=== PATIENT | female | born 1990 | race Caucasian/White ===

== ENCOUNTER 2018-03-06 13:34 | Emergency (ER) | payer SELFPAY ==
[~2018-03-06] VITALS: Ht 157.5 cm; Wt 77.1 kg
[2018-03-06 13:44] VITALS: Ht 157.5 cm; Wt 77.1 kg
[2018-03-06 14:28] LABS: UA SPECIFIC GRAVITY 1.025 (1.005-1.035); microscopic required? YES; urine erythrocyte NEGATIVE (NEGATIVE)
[2018-03-06 14:37] LABS: AMPHETAMINE QUAL UR POSITIVE (NEG <=1000)
[2018-03-06 14:56] LABS: RED CELL DISTRIBUTION WIDTH 13.9 % (11.5-14.5)
[2018-03-06 15:03] LABS: PLATELET COUNT 445 x10^3mcL (130-400)
[2018-03-06 15:08] LABS: CALCIUM 9.2 mg/dL (8.5-10.1); CARBON DIOXIDE 16.1 mmol/L (21-32); CHLORIDE SERUM 105 mmol/L (98-107); CREATININE SERUM 0.9 mg/dL (0.6-1.0); GFR1 > 60 mL/min; GLUCOSE SERUM 78 mg/dL (74-106); POTASSIUM SERUM 3.8 mmol/L (3.5-5.1); SODIUM SERUM 139 mmol/L (136-145)
[2018-03-06 15:12] LABS: ALBUMIN 4.3 g/dL (3.4-5.0); ALKALINE PHOSPHATASE 101 U/L (46-116); ALT/SGPT 42 U/L (14-59); AST/SGOT 44 U/L (15-37); BILIRUBIN TOTAL 3.1 mg/dL (0.20-1.00); TOTAL PROTEIN, SERUM 7.3 g/dL (6.4-8.2)
[2018-03-06] MEDS ORDERED: VALACYCLOVIR HYD1 GM PO (18:10)
[2018-03-06] MEDS ORDERED: SEROQUEL50 M1 PO (18:11)
[2018-03-06] MEDS ORDERED: SULFAMETH/TRIME1 TA3 PO (18:12)
[2018-03-06 19:18] VITALS: BP 133/93
== END 2018-03-06 19:18 | disposition home or self-care (01) ==
LOC: ED 13:34
PROVIDERS: Specialist
DX: F10.129 Alcohol abuse with intoxication, unspecified (principal); F15.10 Other stimulant abuse, uncomplicated; R41.82 Altered mental status, unspecified; F20.9 Schizophrenia, unspecified
CPT/HCPCS: 83880; G0480; J1630; J2060; J7030; Q0092

== ENCOUNTER 2018-03-30 19:17 | Emergency (ER) | payer MEDICAID ==
[~2018-03-30] VITALS: Ht 162.6 cm; Wt 77.1 kg
[~2018-03-30 19:17] MED LIST: SEROQUEL50 M1 PO; SULFAMETH/TRIME1 TA3 PO; VALACYCLOVIR HYD1 GM PO
[2018-03-30 19:43] VITALS: Ht 162.6 cm; Wt 77.1 kg
[2018-03-30 20:07] VITALS: BP 118/58
== END 2018-03-30 20:07 | disposition other institution (70) ==
LOC: ED 19:17
DX: S50.311A Abrasion of right elbow, initial encounter (principal); F10.129 Alcohol abuse with intoxication, unspecified; F20.9 Schizophrenia, unspecified; X58.XXXA Exposure to other specified factors, initial encounter; Y93.89 Activity, other specified; Y92.89 Other specified places as the place of occurrence of the external cause; Y99.8 Other external cause status

== ENCOUNTER 2018-04-13 00:53 | Inpatient (IN) | payer MEDICAID ==
[~2018-04-13] VITALS: Ht 157.5 cm; Wt 68.1 kg
[2018-04-13 00:58] VITALS: Ht 157.5 cm; Wt 68.1 kg
[2018-04-13 01:43] LABS: BASOPHIL % 0.5 % (0-2); RED CELL DISTRIBUTION WIDTH 11.8 % (11.5-14.5)
[2018-04-13 01:45] LABS: PLATELET COUNT 461 x10^3mcL (130-400)
[2018-04-13 01:55] LABS: CALCIUM 8.5 mg/dL (8.5-10.1); CARBON DIOXIDE 23.8 mmol/L (21-32); CHLORIDE SERUM 105 mmol/L (98-107); CREATININE SERUM 0.8 mg/dL (0.6-1.0); GFR1 > 60 mL/min; GLUCOSE SERUM 98 mg/dL (74-106); POTASSIUM SERUM 3.6 mmol/L (3.5-5.1); SODIUM SERUM 140 mmol/L (136-145)
[2018-04-13 01:59] LABS: ALBUMIN 3.6 g/dL (3.4-5.0); ALKALINE PHOSPHATASE 94 U/L (46-116); ALT/SGPT 23 U/L (14-59); AST/SGOT 32 U/L (15-37); BILIRUBIN TOTAL 0.59 mg/dL (0.20-1.00); TOTAL PROTEIN, SERUM 6.6 g/dL (6.4-8.2)
[2018-04-13 02:15] LABS: microscopic required? NO
[2018-04-13 02:38] LABS: AMPHETAMINE QUAL UR POSITIVE (NEG <=1000)
[2018-04-13 02:40] LABS: UA SPECIFIC GRAVITY >=1.030 (1.005-1.035); urine erythrocyte NEGATIVE (NEGATIVE)
[2018-04-13 04:03] VITALS: BP 128/75
[2018-04-13 04:04] LABS: PHOSPHOROUS 4.6 mg/dL (2.5-4.9)
[2018-04-13 04:08] LABS: T3 TOTAL 1.34 ng/mL
[2018-04-13 04:14] LABS: CHOLESTEROL/HDL RATIO 2.5
[2018-04-13 04:34] LABS: FREE T4 1.08 ng/dL (0.76-1.46)
[2018-04-13 12:28] VITALS: BP 103/63
[2018-04-13 16:59] VITALS: BP 103/63
[2018-04-13] MEDS ORDERED: ZOLOFT50 MG PO (17:14)
[2018-04-13] MEDS ORDERED: SEROQUEL100 MG PO (17:32)
[2018-04-13 20:56] VITALS: BP 114/71
[2018-04-14 06:28] VITALS: BP 119/64
[2018-04-14 08:30] VITALS: BP 108/63
[2018-04-14 10:01] VITALS: BP 108/63
[2018-04-14 12:30] VITALS: BP 111/73
== END 2018-04-14 14:29 | disposition home or self-care (01) | DRG 812 ==
LOC: ED 00:53 → DU 03:02 → MU 04-14 11:13
PROVIDERS: Emergency Medicine; Family Medicine
DX: T43.592A Poisoning by other antipsychotics and neuroleptics, intentional self-harm, initial encounter (principal); G92 Toxic encephalopathy; F25.1 Schizoaffective disorder, depressive type; R45.851 Suicidal ideations; F32.9 Major depressive disorder, single episode, unspecified; Y92.89 Other specified places as the place of occurrence of the external cause; F17.210 Nicotine dependence, cigarettes, uncomplicated; F41.9 Anxiety disorder, unspecified; F15.10 Other stimulant abuse, uncomplicated; F19.10 Other psychoactive substance abuse, uncomplicated; F10.10 Alcohol abuse, uncomplicated; F11.10 Opioid abuse, uncomplicated; Z23 Encounter for immunization
CPT/HCPCS: 83880; 84439; G0480; J7030; Q0092

== ENCOUNTER 2018-09-01 10:43 | Emergency (ER) | payer OTHER ==
[~2018-09-01] VITALS: Ht 157.5 cm; Wt 68.0 kg
[~2018-09-01 10:43] MED LIST changes: +SEROQUEL100 MG PO; +ZOLOFT50 MG PO
[2018-09-01 10:55] VITALS: Ht 157.5 cm; Wt 68.0 kg
[2018-09-01 11:26] VITALS: BP 117/70
== END 2018-09-01 11:26 | disposition home or self-care (01) ==
LOC: ED 10:43
DX: L03.115 Cellulitis of right lower limb (principal); F15.10 Other stimulant abuse, uncomplicated; F41.9 Anxiety disorder, unspecified; F31.9 Bipolar disorder, unspecified

== ENCOUNTER 2018-09-04 21:08 | Inpatient (IN) | payer OTHER ==
[~2018-09-04] VITALS: Ht 157.5 cm; Wt 68.0 kg
[2018-09-04 23:01] LABS: BASOPHIL % 0.9 % (0-2); PLATELET COUNT 342 x10^3mcL (130-400); RED CELL DISTRIBUTION WIDTH 12.5 % (11.5-14.5)
[2018-09-04 23:08] LABS: CALCIUM 9.1 mg/dL (8.5-10.1); CARBON DIOXIDE 30.4 mmol/L (21-32); CHLORIDE SERUM 104 mmol/L (98-107); CREATININE SERUM 0.8 mg/dL (0.6-1.0); GFR1 > 60 mL/min; GLUCOSE SERUM 86 mg/dL (74-106); SODIUM SERUM 142 mmol/L (136-145)
[2018-09-04 23:37] LABS: ALKALINE PHOSPHATASE 134 U/L (46-116); ALT/SGPT 203 U/L (14-59); AST/SGOT 163 U/L (15-37); BILIRUBIN TOTAL 1.38 mg/dL (0.20-1.00); TOTAL PROTEIN, SERUM 6.9 g/dL (6.4-8.2)
[2018-09-05] MEDS ORDERED: RISPERIDONE1 MG (06:15)
[2018-09-05 07:06] LABS: T3 TOTAL 1.46 ng/mL
[2018-09-05 07:12] LABS: MAGNESIUM 2.3 mg/dL (1.8-2.4); PHOSPHOROUS 4.4 mg/dL (2.5-4.9)
[2018-09-05 07:25] LABS: FREE T4 1.16 ng/dL (0.76-1.46); FREE THYROXINE INDEX 2.8 ug/dL (1.4-4.5); T4(THYROXINE) 8.5 ug/dL (4.7-13.3)
[2018-09-05 10:19] VITALS: BP 115/66
[2018-09-05 11:25] LABS: microscopic required? NO
[2018-09-05 12:15] LABS: urine erythrocyte NEGATIVE (NEGATIVE)
[2018-09-05 12:19] LABS: AMPHETAMINE QUAL UR POSITIVE (See below)
[2018-09-05 17:30] VITALS: BP 105/64; BP 113/76
[2018-09-05 21:03] VITALS: BP 114/72
[2018-09-06 00:50] VITALS: BP 111/69
[2018-09-06 05:51] VITALS: BP 107/50
[2018-09-06 06:03] LABS: BASOPHIL % 1.1 % (0-2); PLATELET COUNT 348 x10^3mcL (130-400); RED CELL DISTRIBUTION WIDTH 12.3 % (11.5-14.5)
[2018-09-06 06:22] LABS: CALCIUM 8.3 mg/dL (8.5-10.1); CARBON DIOXIDE 26.4 mmol/L (21-32); CHLORIDE SERUM 107 mmol/L (98-107); CREATININE SERUM 0.8 mg/dL (0.6-1.0); GFR1 > 60 mL/min; GLUCOSE SERUM 108 mg/dL (74-106); POTASSIUM SERUM 3.8 mmol/L (3.5-5.1); SODIUM SERUM 142 mmol/L (136-145)
[2018-09-06 09:01] VITALS: BP 99/59
[2018-09-06 12:15] VITALS: BP 93/47
[2018-09-06 12:56] VITALS: BP 93/47
[2018-09-06 13:40] VITALS: Ht 157.5 cm; Wt 68.0 kg
== END 2018-09-06 16:16 | disposition home or self-care (01) | DRG 812 ==
LOC: ED 21:08 → DU 09-05 05:48
PROVIDERS: Emergency Medicine; General Practice; Internal Medicine
DX: T43.621A Poisoning by amphetamines, accidental (unintentional), initial encounter (principal); G92 Toxic encephalopathy; M62.82 Rhabdomyolysis; F20.9 Schizophrenia, unspecified; F41.0 Panic disorder [episodic paroxysmal anxiety]; R74.0 Nonspecific elevation of levels of transaminase and lactic acid dehydrogenase [LDH]; M94.0 Chondrocostal junction syndrome [Tietze]; Y92.89 Other specified places as the place of occurrence of the external cause; F15.10 Other stimulant abuse, uncomplicated; E80.6 Other disorders of bilirubin metabolism; F32.9 Major depressive disorder, single episode, unspecified; F41.9 Anxiety disorder, unspecified; N92.6 Irregular menstruation, unspecified
CPT/HCPCS: 83880; 84439; G0480; J1630; J3490; J7030; Q0092

== ENCOUNTER 2018-09-08 01:04 | Emergency (ER) | payer OTHER ==
[~2018-09-08] VITALS: Ht 157.5 cm; Wt 77.1 kg
[~2018-09-08 01:04] MED LIST changes: +RISPERIDONE1 MG
[2018-09-08 01:07] VITALS: Ht 157.5 cm; Wt 77.1 kg
[2018-09-08 02:16] LABS: BASOPHIL % 0.9 % (0-2); PLATELET COUNT 384 x10^3mcL (130-400); RED CELL DISTRIBUTION WIDTH 12.1 % (11.5-14.5)
[2018-09-08 02:22] LABS: CALCIUM 8.4 mg/dL (8.5-10.1); CARBON DIOXIDE 28.2 mmol/L (21-32); CHLORIDE SERUM 109 mmol/L (98-107); CREATININE SERUM 0.6 mg/dL (0.6-1.0); GFR1 > 60 mL/min; GLUCOSE SERUM 95 mg/dL (74-106); POTASSIUM SERUM 4.1 mmol/L (3.5-5.1); SODIUM SERUM 146 mmol/L (136-145)
[2018-09-08 02:26] LABS: ALBUMIN 3.4 g/dL (3.4-5.0); ALKALINE PHOSPHATASE 147 U/L (46-116); ALT/SGPT 110 U/L (14-59); AMYLASE 88 U/L (25-115); AST/SGOT 73 U/L (15-37); BILIRUBIN TOTAL 0.22 mg/dL (0.20-1.00); LIPASE 162 IU/L (73-393); TOTAL PROTEIN, SERUM 6.2 g/dL (6.4-8.2)
[2018-09-08 02:28] LABS: AMPHETAMINE QUAL UR NONE DETECTED (See below)
[2018-09-08 05:38] VITALS: BP 116/59
== END 2018-09-08 05:38 | disposition home or self-care (01) ==
LOC: ED 01:04
PROVIDERS: Emergency Medicine
DX: R07.89 Other chest pain (principal); R11.10 Vomiting, unspecified; R05 Cough; F20.9 Schizophrenia, unspecified; F41.9 Anxiety disorder, unspecified; F31.9 Bipolar disorder, unspecified
CPT/HCPCS: 36415; G0480; J2405; J3490; J7030; Q0092

== ENCOUNTER 2018-09-09 22:46 | Emergency (ER) | payer OTHER ==
[~2018-09-09] VITALS: Ht 157.5 cm; Wt 77.1 kg
[2018-09-09 22:58] VITALS: Ht 157.5 cm; Wt 77.1 kg
[2018-09-10 00:02] VITALS: BP 116/68
== END 2018-09-10 00:02 | disposition home or self-care (01) ==
LOC: ED 22:46
DX: F41.9 Anxiety disorder, unspecified (principal); F32.9 Major depressive disorder, single episode, unspecified

== ENCOUNTER 2018-09-10 01:04 | Emergency (ER) | payer OTHER ==
[~2018-09-10] VITALS: Ht 157.5 cm; Wt 77.1 kg
[2018-09-10 01:09] VITALS: Ht 157.5 cm; Wt 77.1 kg
[2018-09-10 01:59] VITALS: BP 111/71
[2018-09-10 02:12] LABS: AMPHETAMINE QUAL UR NONE DETECTED (See below)
== END 2018-09-10 01:59 | disposition home or self-care (01) ==
LOC: ED 01:04
PROVIDERS: Emergency Medicine
DX: F41.9 Anxiety disorder, unspecified (principal); F20.9 Schizophrenia, unspecified

== ENCOUNTER 2018-09-10 20:20 | Emergency (ER) | payer OTHER ==
[~2018-09-10] VITALS: Ht 162.6 cm; Wt 72.6 kg
[2018-09-10 20:23] VITALS: Ht 162.6 cm; Wt 72.6 kg
[2018-09-11 06:19] VITALS: BP 125/80
== END 2018-09-11 06:19 | disposition home or self-care (01) ==
LOC: ED 20:20
DX: F15.10 Other stimulant abuse, uncomplicated (principal); F20.9 Schizophrenia, unspecified; F32.9 Major depressive disorder, single episode, unspecified; F31.9 Bipolar disorder, unspecified

== ENCOUNTER 2018-09-14 00:29 | Emergency (ER) | payer OTHER | END 2018-09-14 01:51 | disposition left against medical advice (07) | LOC: ED 00:29 | DX: Z53.21 Procedure and treatment not carried out due to patient leaving prior to being seen by health care provider (principal) ==

== ENCOUNTER 2018-09-20 09:25 | Emergency (ER) | payer OTHER ==
[~2018-09-20] VITALS: Ht 157.5 cm; Wt 77.1 kg
[2018-09-20 09:26] VITALS: Ht 157.5 cm; Wt 77.1 kg
[2018-09-20 09:47] VITALS: BP 129/90
[2018-09-20 10:02] LABS: AMPHETAMINE QUAL UR POSITIVE (See below)
== END 2018-09-20 09:47 | disposition other institution (70) ==
LOC: ED 09:25
DX: F19.10 Other psychoactive substance abuse, uncomplicated (principal); F20.9 Schizophrenia, unspecified; F41.9 Anxiety disorder, unspecified; F31.9 Bipolar disorder, unspecified; F15.10 Other stimulant abuse, uncomplicated

== ENCOUNTER 2018-09-20 09:25 | Emergency (ER) | payer OTHER | END 2018-09-20 09:47 | disposition other institution (70) | LOC: ED 09:25 | DX: Z02.89 Encounter for other administrative examinations (principal) ==

== ENCOUNTER 2018-09-26 07:23 | Emergency (ER) | payer OTHER ==
[~2018-09-26] VITALS: Ht 157.5 cm; Wt 63.5 kg
[2018-09-26 07:30] VITALS: Ht 157.5 cm; Wt 63.5 kg
[2018-09-26 08:22] LABS: UA SPECIFIC GRAVITY 1.025 (1.005-1.035); microscopic required? YES; urine erythrocyte 3+ (NEGATIVE)
[2018-09-26 09:10] LABS: BASOPHIL % 0.4 % (0-2); RED CELL DISTRIBUTION WIDTH 11.9 % (11.5-14.5)
[2018-09-26 09:11] LABS: CALCIUM 9.1 mg/dL (8.5-10.1); CARBON DIOXIDE 27.1 mmol/L (21-32); CHLORIDE SERUM 103 mmol/L (98-107); CREATININE SERUM 0.7 mg/dL (0.6-1.0); GFR1 > 60 mL/min; GLUCOSE SERUM 87 mg/dL (74-106); PLATELET COUNT 424 x10^3mcL (130-400); POTASSIUM SERUM 3.8 mmol/L (3.5-5.1); SODIUM SERUM 139 mmol/L (136-145)
[2018-09-26 09:16] LABS: AMPHETAMINE QUAL UR POSITIVE (See below)
[2018-09-26 09:17] LABS: ALBUMIN 4.3 g/dL (3.4-5.0); ALKALINE PHOSPHATASE 104 U/L (46-116); ALT/SGPT 21 U/L (14-59); AST/SGOT 13 U/L (15-37); BILIRUBIN TOTAL 0.5 mg/dL (0.20-1.00); TOTAL PROTEIN, SERUM 7.9 g/dL (6.4-8.2)
[2018-09-26 10:41] VITALS: BP 134/88
== END 2018-09-26 10:40 | disposition left against medical advice (07) ==
LOC: ED 07:23
PROVIDERS: Emergency Medicine
DX: F15.959 Other stimulant use, unspecified with stimulant-induced psychotic disorder, unspecified (principal); F20.9 Schizophrenia, unspecified; F41.9 Anxiety disorder, unspecified; F31.9 Bipolar disorder, unspecified
CPT/HCPCS: 36415; G0480

== ENCOUNTER 2018-10-13 01:00 | Inpatient (IN) | payer OTHER ==
[~2018-10-13] VITALS: Ht 157.5 cm; Wt 63.5 kg
[2018-10-13 01:07] VITALS: Ht 157.5 cm; Wt 63.5 kg
[2018-10-13 02:22] LABS: UA SPECIFIC GRAVITY 1.025 (1.005-1.035); microscopic required? YES; urine erythrocyte NEGATIVE (NEGATIVE)
[2018-10-13 02:41] LABS: AMPHETAMINE QUAL UR POSITIVE (See below)
[2018-10-13 03:31] LABS: BASOPHIL % 0.8 % (0-2); RED CELL DISTRIBUTION WIDTH 12.3 % (11.5-14.5)
[2018-10-13 03:33] LABS: PLATELET COUNT 412 x10^3mcL (130-400)
[2018-10-13 03:52] LABS: CALCIUM 8.7 mg/dL (8.5-10.1); CARBON DIOXIDE 27.4 mmol/L (21-32); CHLORIDE SERUM 108 mmol/L (98-107); CREATININE SERUM 0.8 mg/dL (0.6-1.0); GFR1 > 60 mL/min; GLUCOSE SERUM 89 mg/dL (74-106); POTASSIUM SERUM 4.5 mmol/L (3.5-5.1); SODIUM SERUM 145 mmol/L (136-145)
[2018-10-13 03:56] LABS: ALBUMIN 4.1 g/dL (3.4-5.0); ALKALINE PHOSPHATASE 97 U/L (46-116); ALT/SGPT 12 U/L (14-59); AST/SGOT 9 U/L (15-37); BILIRUBIN TOTAL 0.41 mg/dL (0.20-1.00); FREE T4 0.88 ng/dL (0.76-1.46); LIPASE 72 IU/L (73-393); TOTAL PROTEIN, SERUM 7.9 g/dL (6.4-8.2)
[2018-10-13 08:09] LABS: MAGNESIUM 1.8 mg/dL (1.8-2.4); PHOSPHOROUS 3.6 mg/dL (2.5-4.9)
[2018-10-13 08:12] LABS: CHOLESTEROL/HDL RATIO 2.4
[2018-10-13 11:15] VITALS: BP 119/76
[2018-10-13 13:26] VITALS: BP 136/82
[2018-10-13 16:59] VITALS: BP 109/72
[2018-10-13 21:52] VITALS: BP 103/64
[2018-10-14 05:53] VITALS: BP 102/61
[2018-10-14 09:19] VITALS: BP 92/50
[2018-10-14 18:04] VITALS: BP 105/70
[2018-10-15 05:13] VITALS: BP 97/56
[2018-10-15 08:29] VITALS: BP 116/66
[2018-10-15 18:25] VITALS: BP 104/69
[2018-10-15 19:21] VITALS: BP 103/67
[2018-10-16] MEDS ORDERED: KEFLEX500 M1 PO (10:14)
[2018-10-16 10:19] VITALS: BP 103/67
== END 2018-10-16 10:34 | disposition home or self-care (01) | DRG 812 ==
LOC: ED 01:00 → MU 03:44
PROVIDERS: Emergency Medicine; Internal Medicine
DX: T43.621A Poisoning by amphetamines, accidental (unintentional), initial encounter (principal); N17.0 Acute kidney failure with tubular necrosis; F20.9 Schizophrenia, unspecified; F41.9 Anxiety disorder, unspecified; D47.3 Essential (hemorrhagic) thrombocythemia; F29 Unspecified psychosis not due to a substance or known physiological condition; F17.210 Nicotine dependence, cigarettes, uncomplicated; Y90.0 Blood alcohol level of less than 20 mg/100 ml; F41.0 Panic disorder [episodic paroxysmal anxiety]; F10.129 Alcohol abuse with intoxication, unspecified; F32.9 Major depressive disorder, single episode, unspecified; N39.0 Urinary tract infection, site not specified; Z81.8 Family history of other mental and behavioral disorders; Y92.89 Other specified places as the place of occurrence of the external cause
CPT/HCPCS: 83880; 84439; G0480; J0696; J2060; J7030; Q0092

== ENCOUNTER 2018-10-16 18:39 | Emergency (ER) | payer OTHER ==
[~2018-10-16] VITALS: Ht 165.1 cm; Wt 72.6 kg
[~2018-10-16 18:39] MED LIST changes: +KEFLEX500 M1 PO
[2018-10-16 18:45] VITALS: BP 137/91; Ht 165.1 cm; Wt 72.6 kg
== END 2018-10-16 20:15 | disposition left against medical advice (07) ==
LOC: ED 18:39
DX: F15.90 Other stimulant use, unspecified, uncomplicated (principal); R10.9 Unspecified abdominal pain; F20.9 Schizophrenia, unspecified; F41.9 Anxiety disorder, unspecified; F32.9 Major depressive disorder, single episode, unspecified
CPT/HCPCS: G0480

== ENCOUNTER 2018-10-17 02:07 | Emergency (ER) | payer OTHER ==
[~2018-10-17] VITALS: Ht 152.4 cm; Wt 54.4 kg
[2018-10-17 02:19] VITALS: BP 129/74; Ht 152.4 cm; Wt 54.4 kg
== END 2018-10-17 02:55 | disposition left against medical advice (07) ==
LOC: ED 02:07
DX: F15.10 Other stimulant abuse, uncomplicated (principal); F20.9 Schizophrenia, unspecified; F41.9 Anxiety disorder, unspecified; F32.9 Major depressive disorder, single episode, unspecified; F31.9 Bipolar disorder, unspecified
CPT/HCPCS: G0480; J2060

== ENCOUNTER 2018-10-18 04:22 | Emergency (ER) | payer OTHER ==
[~2018-10-18] VITALS: Ht 170.2 cm; Wt 77.1 kg
[2018-10-18 04:27] VITALS: Ht 170.2 cm; Wt 77.1 kg
[2018-10-18 05:07] LABS: AMPHETAMINE QUAL UR POSITIVE (See below)
[2018-10-18 05:07] LABS: CARBON DIOXIDE 26.8 mmol/L (21-32); CHLORIDE SERUM 102 mmol/L (98-107); CREATININE SERUM 0.6 mg/dL (0.6-1.0); GFR1 > 60 mL/min; GLUCOSE SERUM 84 mg/dL (74-106); SODIUM SERUM 137 mmol/L (136-145)
[2018-10-18 05:12] LABS: ALBUMIN 4.4 g/dL (3.4-5.0); ALKALINE PHOSPHATASE 93 U/L (46-116); ALT/SGPT 15 U/L (14-59); AST/SGOT 19 U/L (15-37); BILIRUBIN TOTAL 0.99 mg/dL (0.20-1.00); TOTAL PROTEIN, SERUM 7.4 g/dL (6.4-8.2)
[2018-10-18 05:14] LABS: BASOPHIL % 0.4 % (0-2); PLATELET COUNT 317 x10^3mcL (130-400); POTASSIUM SERUM 4.1 mmol/L (3.5-5.1); RED CELL DISTRIBUTION WIDTH 12.6 % (11.5-14.5)
[2018-10-18 06:47] VITALS: BP 128/84
== END 2018-10-18 06:47 | disposition home or self-care (01) ==
LOC: ED 04:22
PROVIDERS: Emergency Medicine
DX: F41.9 Anxiety disorder, unspecified (principal); F15.20 Other stimulant dependence, uncomplicated; F20.9 Schizophrenia, unspecified; F31.9 Bipolar disorder, unspecified
CPT/HCPCS: 36415; G0480

== ENCOUNTER 2018-12-07 04:34 | Emergency (ER) | payer OTHER ==
[~2018-12-07] VITALS: Ht 157.5 cm; Wt 71.2 kg
[2018-12-07 04:37] VITALS: BP 125/90; Ht 157.5 cm; Wt 71.2 kg
== END 2018-12-07 05:14 | disposition home or self-care (01) ==
LOC: ED 04:34
DX: F41.9 Anxiety disorder, unspecified (principal); F15.10 Other stimulant abuse, uncomplicated; E86.0 Dehydration; F17.210 Nicotine dependence, cigarettes, uncomplicated; F20.9 Schizophrenia, unspecified; F32.9 Major depressive disorder, single episode, unspecified
CPT/HCPCS: 82962

== ENCOUNTER 2018-12-08 12:39 | Emergency (ER) | payer OTHER ==
[~2018-12-08] VITALS: Ht 170.2 cm; Wt 50.3 kg
[2018-12-08 12:41] VITALS: BP 111/71; Ht 170.2 cm; Wt 50.3 kg
== END 2018-12-08 13:54 | disposition left against medical advice (07) ==
LOC: ED 12:39
DX: R07.89 Other chest pain (principal); F15.10 Other stimulant abuse, uncomplicated; F20.9 Schizophrenia, unspecified; F31.9 Bipolar disorder, unspecified
CPT/HCPCS: Q0092

== ENCOUNTER 2018-12-17 13:04 | Emergency (ER) | payer OTHER ==
[~2018-12-17] VITALS: Ht 157.5 cm; Wt 71.2 kg
[2018-12-17 13:05] VITALS: BP 111/60; Ht 157.5 cm; Wt 71.2 kg
== END 2018-12-17 13:28 | disposition left against medical advice (07) ==
LOC: ED 13:04
DX: Z53.21 Procedure and treatment not carried out due to patient leaving prior to being seen by health care provider (principal)

== ENCOUNTER 2018-12-18 23:34 | Emergency (ER) | payer OTHER ==
[~2018-12-18] VITALS: Ht 157.5 cm; Wt 63.5 kg
[2018-12-18 23:44] VITALS: Ht 157.5 cm; Wt 63.5 kg
[2018-12-19 01:31] VITALS: BP 130/86
== END 2018-12-19 01:31 | disposition other institution (70) ==
LOC: ED 23:34
DX: Z02.89 Encounter for other administrative examinations (principal)

== ENCOUNTER 2018-12-18 23:34 | Emergency (ER) | payer OTHER | END 2018-12-19 01:32 | disposition other institution (70) | LOC: ED 23:34 | DX: Z02.89 Encounter for other administrative examinations (principal) ==

== ENCOUNTER 2019-01-06 22:26 | Emergency (ER) | payer OTHER ==
[~2019-01-06] VITALS: Ht 157.5 cm; Wt 63.5 kg
[2019-01-06 23:07] VITALS: Ht 157.5 cm; Wt 63.5 kg
[2019-01-07 02:15] VITALS: BP 141/72
== END 2019-01-07 06:49 | disposition home or self-care (01) ==
LOC: ED 22:26
DX: R00.2 Palpitations (principal); T43.625A Adverse effect of amphetamines, initial encounter; Y92.89 Other specified places as the place of occurrence of the external cause

== ENCOUNTER 2019-01-09 15:34 | Emergency (ER) | payer OTHER ==
[~2019-01-09] VITALS: Ht 170.2 cm; Wt 74.8 kg
[2019-01-09 16:33] VITALS: BP 123/79; Ht 170.2 cm; Wt 74.8 kg
== END 2019-01-09 18:10 | disposition home or self-care (01) ==
LOC: ED 15:34
DX: R53.1 Weakness (principal); F31.9 Bipolar disorder, unspecified; F15.10 Other stimulant abuse, uncomplicated; Z59.0 Homelessness
CPT/HCPCS: 87804; G0480

== ENCOUNTER 2019-01-12 17:20 | Emergency (ER) | payer OTHER | END 2019-01-12 17:32 | disposition left against medical advice (07) | LOC: ED 17:20 | DX: Z53.21 Procedure and treatment not carried out due to patient leaving prior to being seen by health care provider (principal) ==

== ENCOUNTER 2019-02-11 08:46 | Emergency (ER) | payer OTHER ==
[~2019-02-11] VITALS: Ht 162.6 cm; Wt 79.4 kg
[2019-02-11 08:56] VITALS: Ht 162.6 cm; Wt 79.4 kg
== END 2019-02-11 09:49 | disposition left against medical advice (07) ==
LOC: ED 08:46
DX: Z53.21 Procedure and treatment not carried out due to patient leaving prior to being seen by health care provider (principal)

== ENCOUNTER 2019-02-16 01:05 | Emergency (ER) | payer OTHER ==
[~2019-02-16] VITALS: Ht 162.6 cm; Wt 63.5 kg
[2019-02-16 01:13] VITALS: Ht 162.6 cm; Wt 63.5 kg
[2019-02-16 07:30] VITALS: BP 103/59
== END 2019-02-16 07:54 | disposition home or self-care (01) ==
LOC: ED 01:05
DX: F41.9 Anxiety disorder, unspecified (principal); F32.9 Major depressive disorder, single episode, unspecified; F20.9 Schizophrenia, unspecified

== ENCOUNTER 2019-02-16 13:43 | Emergency (ER) | payer OTHER ==
[~2019-02-16] VITALS: Ht 160 cm; Wt 74.8 kg
[2019-02-16 13:47] VITALS: Ht 160 cm; Wt 74.8 kg
[2019-02-16 14:51] VITALS: BP 108/61
== END 2019-02-16 15:30 | disposition left against medical advice (07) ==
LOC: ED 13:43
DX: Z53.21 Procedure and treatment not carried out due to patient leaving prior to being seen by health care provider (principal)
CPT/HCPCS: Q0162

== ENCOUNTER 2019-02-16 22:28 | Emergency (ER) | payer OTHER | END 2019-02-16 22:55 | disposition left against medical advice (07) | LOC: ED 22:28 | DX: Z53.21 Procedure and treatment not carried out due to patient leaving prior to being seen by health care provider (principal) ==

== ENCOUNTER 2019-02-17 03:18 | Emergency (ER) | payer OTHER ==
[~2019-02-17] VITALS: Ht 157.5 cm; Wt 68.0 kg
[2019-02-17 03:28] VITALS: Ht 157.5 cm; Wt 68.0 kg
[2019-02-17 05:11] VITALS: BP 135/80
== END 2019-02-17 05:11 | disposition home or self-care (01) ==
LOC: ED 03:18
DX: F41.9 Anxiety disorder, unspecified (principal); F32.9 Major depressive disorder, single episode, unspecified

== ENCOUNTER 2019-02-28 06:41 | Emergency (ER) | payer OTHER ==
[~2019-02-28] VITALS: Ht 157.5 cm; Wt 68.0 kg
[2019-02-28 06:45] VITALS: Ht 157.5 cm; Wt 68.0 kg
[2019-02-28 07:33] VITALS: BP 136/91
== END 2019-02-28 07:33 | disposition left against medical advice (07) ==
LOC: ED 06:41
DX: F15.10 Other stimulant abuse, uncomplicated (principal); F14.90 Cocaine use, unspecified, uncomplicated; F10.10 Alcohol abuse, uncomplicated; E86.0 Dehydration; F20.9 Schizophrenia, unspecified; F31.9 Bipolar disorder, unspecified
CPT/HCPCS: 83880; G0480

== ENCOUNTER 2019-02-28 10:13 | Emergency (ER) | payer OTHER ==
[~2019-02-28] VITALS: Ht 157.5 cm; Wt 68.0 kg
[2019-02-28 10:19] VITALS: BP 132/74; Ht 157.5 cm; Wt 68.0 kg
== END 2019-02-28 10:50 | disposition other institution (70) ==
LOC: ED 10:13
DX: Z02.89 Encounter for other administrative examinations (principal)